=== PATIENT | female | born 1975 ===

== ENCOUNTER → 2019-03-24 21:21 | Outpatient (ROUT) | payer OTHER, SELFPAY ==
[2019-03-24 22:21] LABS: HEMOLYSIS < 15 (0-50)
[2019-03-24 22:57] LABS: Thyroid Stimulating Hormone 1.21 uIU/mL (0.47-4.68)
[2019-03-24 23:02] LABS: Ferritin 6.9 ng/mL (6.27-137)
[2019-03-24 23:27] LABS: Iron 35 ug/dL (37-170)
[2019-03-24 23:39] LABS: Percent Iron Saturation 9 % (15-50); Total Iron Binding Capacity 391 ug/dL (265-497); Transferrin 301 mg/dL (206-381)
== END ==
PROVIDERS: Visit Provider Family Medicine
DX: E03.9 Hypothyroidism, unspecified (principal); R79.0 Abnormal level of blood mineral
CPT/HCPCS: 36415; 82728; 83540; 83550; 84443